=== PATIENT | male | born 2000 | race Caucasian/White ===

== ENCOUNTER 2023-03-07 15:29 | Outpatient (CLI) | payer BC ==
[2023-03-07 16:52] LABS: Hematocrit 48.7 % (38.8-50.0); Hemoglobin 16.9 g/dL (13.5-17.5); Mean Corpuscular HGB CONC 34.7 g/dL (32.0-36.0); Mean Corpuscular Hemoglobin 29.8 pg (27.0-33.0); Mean Corpuscular Volume 85.7 fl (81.2-95.1); Mean Platelet Volume 11.6 fl (7.4-10.4); Platelet Count 257 10x3/uL (150-450); RBC Distribution Width 11.9 % (11.5-14.5); Red Blood Cell (RBC) Count 5.68 10x6/uL (4.32-5.72); White Blood Cell (WBC) Count 9.5 10x3/uL (3.5-10.5)
[2023-03-07 17:36] LABS: Bilirubin Neg (Negative); Blood, Urine Negative (Negative); Clarity Cloudy (Clear); Glucose, Urine (Dipstick) Normal (Negative); Ketone, Urine Negative (Negative); Leukocyte Negative (Negative); Nitrite Negative (Negative); Protein, Urine (Dipstick) Negative (Neg-Trace); Urobilinogen Normal mg/dL (Less than 2)
[2023-03-07 17:39] LABS: Anion Gap 15 mmol/L (10-20); BUN (Urea Nitrogen) 10 mg/dL (8.9-20.6); Calc. Creatinine Clearance 0 mL/min (70-130); Calcium 9.7 mg/dL (7.8-10.44); Carbon Dioxide 25 mmol/L (22-29); Chloride 103 mmol/L (98-107); Estimated GFR 112; Glucose 79 mg/dL (70-105); INR-International Normal Ratio 0.9; Potassium 4.3 mmol/L (3.5-5.1); Prothrombin Time 10.2 sec (9.5-12.1); Sodium 139 mmol/L (136-145)
[2023-03-07 17:49] LABS: Bacteria/HPF Rare-Few HPF (None Seen); RBC/HPF None Seen HPF (0-3); Squamous Epithelial 0-3 HPF (0-3); WBC/HPF None Seen HPF (0-3)
== END 2023-03-07 15:30 | disposition home or self-care (01) ==
LOC: LABBT 15:29
PROVIDERS: ATTEND Urology
DX: Z01.812 Encounter for preprocedural laboratory examination (principal); I86.1 Scrotal varices; N43.3 Hydrocele, unspecified; R35.0 Frequency of micturition; R39.198 Other difficulties with micturition; Z72.0 Tobacco use
CPT/HCPCS: 80048; 81001; 85027; 85610; 85730; 87086